=== PATIENT | male | born 1940 | race Caucasian/White ===

== ENCOUNTER 2017-10-24 11:15 | Outpatient (CLI) | payer OTHER ==
--- NOTE | 2017-10-24 14:09 | CT ---
TEMPORAL BONE CT: HISTORY: Otitis externa. Bilateral hearing loss. FINDINGS: Axial images are obtained with coronal reconstructions. The visualized portions of the paranasal sinuses demonstrate some mild maxillary sinus mucosal thicke raza and minimal right sphenoid sinus mucosal thickening. The right and left mastoid air cells are well aerated. The right and left external auditory canals demonstrate some external auditory canal soft tissue thic kening, slightly more pronounced on the right than on the left. The right and left tympanic membrane are unremarkable. The right and left middle ears are unremarkable. No evidence of masses or lesions seen in the hypo, epi, or mesotympanum of the right or left ear. Right and left middle ear ossicles are unremarkable. The right and left trochlea, vestibule, and semicircular canals are intact. The right and left inter nal auditory canals are unremarkable. IMPRESSION: Bilateral external auditory canal thickening, worse on the right than on the left. POS: [facility]
== END 2017-10-24 11:16 | disposition home or self-care (01) ==
LOC: CT 11:15
PROVIDERS: ATTEND Otolaryngology Plastic Surgery within the Head & Neck
DX: H91.93 Unspecified hearing loss, bilateral (principal); H60.90 Unspecified otitis externa, unspecified ear
CPT/HCPCS: 70480